=== PATIENT | male | born 1990 | race Caucasian/White ===

== ENCOUNTER 2025-06-07 20:45 | Emergency (ER) | payer OTHER, BC ==
[~2025-06-07] VITALS: Ht 180.3 cm; Wt 104.3 kg
[~2025-06-07 20:45] MED LIST: FLUT44OIA INH; LORA10 PO; OXYACE5T PO; [UNRECOGNIZED DRUG - OTHER] TP
[2025-06-07] MEDS ORDERED: RX Prepack 6 Tabs Oxycodone 5mg UD ONE (23:05)
[2025-06-07 23:30] VITALS: BP 128/65
== END 2025-06-07 23:45 | disposition home or self-care (01) ==
LOC: ER 20:45
DX: S62.324A Displaced fracture of shaft of fourth metacarpal bone, right hand, initial encounter for closed fracture (principal); S62.326A Displaced fracture of shaft of fifth metacarpal bone, right hand, initial encounter for closed fracture; W01.0XXA Fall on same level from slipping, tripping and stumbling without subsequent striking against object, initial encounter
CPT/HCPCS: 73130; 99283-25; A9270